=== PATIENT | female | born 1980 | race Caucasian/White ===

== ENCOUNTER 2017-03-24 19:14 | Emergency (ER) | payer OTHER ==
[~2017-03-24] VITALS: Ht 165.1 cm; Wt 69.1 kg
[~2017-03-24 19:14] MED LIST: FERR-89 PO; GABA-529 PO; LISI-618 PO
[2017-03-24] MEDS ORDERED: GABA-531 PO (19:22)
[2017-03-24] MEDS ORDERED: MELO-273 PO (19:22)
[2017-03-24 21:43] VITALS: BP 135/78
[2017-03-24] MEDS ORDERED: METHOCARBAMOL 500 MG TABLET PO ONE (21:45)
[2017-03-24] MEDS ORDERED: HYDROCODONE/ACETAMINOPHEN 5-325 MG TABLET PO ONE (21:45)
== END 2017-03-24 22:09 | disposition home or self-care (01) ==
LOC: EMS 19:16
DX: M75.22 Bicipital tendinitis, left shoulder (principal); I10 Essential (primary) hypertension; J45.909 Unspecified asthma, uncomplicated; Z87.891 Personal history of nicotine dependence; X50.3XXA Overexertion from repetitive movements, initial encounter; Y93.89 Activity, other specified; Y92.89 Other specified places as the place of occurrence of the external cause; Y99.0 Civilian activity done for income or pay
CPT/HCPCS: 81025; 99283

== ENCOUNTER 2018-02-15 20:48 | Emergency (ER) | payer OTHER ==
[~2018-02-15] VITALS: Ht 165.1 cm; Wt 70.5 kg
[~2018-02-15 20:48] MED LIST changes: -FERR-89 PO; -GABA-529 PO; +GABA-531 PO; +MELO-107 PO
[2018-02-15] MEDS ORDERED: HTN MED PO (21:14)
[2018-02-15] MEDS ORDERED: KETOROLAC TROMETHAMINE 30 MG/ML VIAL IM ONE (23:00)
[2018-02-16 00:08] VITALS: BP 114/62
== END 2018-02-16 00:10 | disposition home or self-care (01) ==
LOC: EMS 20:49
DX: M79.7 Fibromyalgia (principal); I10 Essential (primary) hypertension; J45.909 Unspecified asthma, uncomplicated; Z87.891 Personal history of nicotine dependence
CPT/HCPCS: 71046; 93005; 96372; 99284; J1885

== ENCOUNTER 2022-06-26 19:03 | Emergency (ER) | payer OTHER ==
[~2022-06-26] VITALS: Ht 167.6 cm; Wt 68.0 kg
[~2022-06-26 19:03] MED LIST changes: -GABA-531 PO; +HTN MED PO; -LISI-618 PO; -MELO-107 PO
[2022-06-26 19:35] LABS: BASOPHILS % (AUTO) 1.3 % (0.0-2.0); EOSINOPHILS % (AUTO) 1.8 % (1.0-6.0); HEMOGLOBIN 12.8 g/dL (12.0-16.0); LYMPHOCYTES # (AUTO) 1.6 K/uL (1.0-4.8); LYMPHOCYTES % (AUTO) 29.4 % (22.0-44.0); MEAN CORPUSCULAR HEMOGLOBIN 28.6 pg (26.0-34.0); MEAN CORPUSCULAR HGB CONC 32.8 G/dL (31.0-37.0); MEAN CORPUSCULAR VOLUME 87 fL (80-100); MONOCYTES # (AUTO) 0.3 K/uL (0.1-1.0); MONOCYTES % (AUTO) 6.2 % (2.0-9.0); NEUTROPHILS # (AUTO) 3.4 K/uL (1.8-7.7); NEUTROPHILS % (AUTO) 61.3 % (40.0-70.0); PLATELET COUNT (AUTO) 261 K/uL (150-450); RED BLOOD CELL COUNT(AUTO) 4.48 MIL/uL (4.00-5.20); RED CELL DISTRIBUTION WIDTH 19.3 % (11.5-14.5)
[2022-06-26 19:43] LABS: ANION GAP 5 mmol/L (8-16); CALCIUM, TOTAL 9.2 mg/dL (8.8-10.5); CARBON DIOXIDE 29 mmol/L (22-29); CHLORIDE 102 mmol/L (98-107); CREATININE 0.81 mg/dL (0.60-1.30); GLOMERULAR FILTR. RATE CALC > 60 mL/min (>60); GLUCOSE,RANDOM 87 mg/dL (70-110); SODIUM SERUM 136 mmol/L (136-145); UREA NITROGEN, BLOOD 11 mg/dL (7-18)
[2022-06-26 19:54] LABS: ALANINE AMINOTRANSFERASE 18 U/L (12-78); ALBUMIN 3.9 g/dL (3.4-5.0); ALKALINE PHOSPHATASE 49 U/L (46-116); ASPARTATE AMINOTRANSFERASE 14 U/L (15-37); BILIRUBIN,TOTAL 0.4 mg/dL (0.1-1.0); HCG,QUANTITATIVE < 1 mIU/mL (0-6); LIPASE 165 U/L (73-393); TOTAL PROTEIN, SERUM 7.2 g/dL (6.4-8.2)
[2022-06-26 19:56] LABS: APPEARANCE,URINE CLEAR (CLEAR); BILIRUBIN,URINE NEGATIVE (NEGATIVE); GLUCOSE, URINE (UA) NEGATIVE (NEGATIVE); KETONES,URINE NEGATIVE (NEGATIVE); LEUKOCYTE ESTERASE ,URINE NEGATIVE (NEGATIVE); NITRATE,URINE NEGATIVE (NEGATIVE); OCCULT BLOOD,URINE NEGATIVE (NEGATIVE); PH,URINE 6.5 (5.0-8.0); PROTEIN,URINE NEGATIVE (NEGATIVE); SPECIFIC GRAVITIY, URINE 1.009 (1.003-1.030); UROBILINOGEN,URINE <=1.0 mg/dL (<=1.0)
[2022-06-26 22:44] VITALS: BP 122/61
== END 2022-06-26 22:52 | disposition home or self-care (01) ==
LOC: EMS 19:07
DX: R10.33 Periumbilical pain (principal); K59.00 Constipation, unspecified; J45.909 Unspecified asthma, uncomplicated; I10 Essential (primary) hypertension; M79.7 Fibromyalgia; Z98.890 Other specified postprocedural states
CPT/HCPCS: 74022; 74176; 80053; 81003; 83690; 84702; 85025; 99285

== ENCOUNTER 2022-11-21 14:01 | Emergency (ER) | payer OTHER ==
[~2022-11-21] VITALS: Ht 165.1 cm; Wt 75.0 kg
[2022-11-21] MEDS ORDERED: ACETAMINOPHEN 500 MG TABLET PO ONE (15:45)
[2022-11-21] MEDS ORDERED: SODIUM CHLORIDE 0.9% 2,000 ML IV ONE (15:45)
[2022-11-21] MEDS ORDERED: ONDANSETRON HCL 4 MG/2 ML VIAL IVP ONE (15:45)
[2022-11-21] MEDS ORDERED: DIPHENOXYLATE/ATROP 2.5-0.025 MG TABLET PO ONE (15:45)
[2022-11-21] MEDS ORDERED: KETOROLAC TROMETHAMINE 30 MG/ML VIAL IVP ONE (15:45)
[2022-11-21 16:00] LABS: BASOPHILS % (AUTO) 0.3 % (0.0-2.0); EOSINOPHILS % (AUTO) 0.3 % (1.0-6.0); HEMATOCRIT 39.3 % (36-46); HEMOGLOBIN 13.2 g/dL (12.0-16.0); LYMPHOCYTES # (AUTO) 0.6 K/uL (1.0-4.8); LYMPHOCYTES % (AUTO) 10.2 % (22.0-44.0); MEAN CORPUSCULAR HEMOGLOBIN 30.1 pg (26.0-34.0); MEAN CORPUSCULAR HGB CONC 33.5 G/dL (31.0-37.0); MEAN CORPUSCULAR VOLUME 90 fL (80-100); MONOCYTES # (AUTO) 0.4 K/uL (0.1-1.0); MONOCYTES % (AUTO) 6.1 % (2.0-9.0); NEUTROPHILS # (AUTO) 5.2 K/uL (1.8-7.7); NEUTROPHILS % (AUTO) 83.1 % (40.0-70.0); PLATELET COUNT (AUTO) 215 K/uL (150-450); RED BLOOD CELL COUNT(AUTO) 4.38 MIL/uL (4.00-5.20); RED CELL DISTRIBUTION WIDTH 13.8 % (11.5-14.5)
[2022-11-21 16:08] LABS: ANION GAP 7 mmol/L (8-16); CALCIUM, TOTAL 8.7 mg/dL (8.8-10.5); CARBON DIOXIDE 27 mmol/L (22-29); CHLORIDE 103 mmol/L (98-107); CREATININE 0.89 mg/dL (0.60-1.30); GLOMERULAR FILTR. RATE CALC > 60 mL/min (>60); GLUCOSE,RANDOM 77 mg/dL (70-110); POTASSIUM 3.9 mmol/L (3.5-5.1); SODIUM SERUM 137 mmol/L (136-145); UREA NITROGEN, BLOOD 14 mg/dL (7-18)
[2022-11-21 16:17] LABS: ALANINE AMINOTRANSFERASE 30 U/L (12-78); ALBUMIN 3.7 g/dL (3.4-5.0); ALKALINE PHOSPHATASE 58 U/L (46-116); ASPARTATE AMINOTRANSFERASE 33 U/L (15-37); BILIRUBIN,TOTAL 0.3 mg/dL (0.1-1.0); LIPASE 84 U/L (73-393); TOTAL PROTEIN, SERUM 7.5 g/dL (6.4-8.2)
[2022-11-21 17:11] VITALS: BP 102/59
[2022-11-21] MEDS ORDERED: ACET-66 PO (17:12)
[2022-11-21] MEDS ORDERED: DIPH-654 PO (17:12)
[2022-11-21] MEDS ORDERED: ONDA-104 PO (17:12)
== END 2022-11-21 17:46 | disposition home or self-care (01) ==
LOC: EMS 14:02
DX: K52.9 Noninfective gastroenteritis and colitis, unspecified (principal); J45.909 Unspecified asthma, uncomplicated; I10 Essential (primary) hypertension; M79.7 Fibromyalgia; Z87.891 Personal history of nicotine dependence; Z98.890 Other specified postprocedural states
CPT/HCPCS: 99284; 96374; 96361; 96375; 80053; 83690; 84703; 85025; J1885; J2405; J7030

== ENCOUNTER 2023-10-23 07:28 | Emergency (ER) | payer OTHER ==
[~2023-10-23] VITALS: Ht 165.1 cm; Wt 74.5 kg
[~2023-10-23 07:28] MED LIST changes: +ACET-66 PO; +DIPH-1130 PO; -HTN MED PO; +ONDA-104 PO
[2023-10-23 07:29] VITALS: BP 125/74; PULSE 73; RESP 18
[2023-10-23] MEDS ORDERED: GABA-1181 PO (07:36)
[2023-10-23] MEDS ORDERED: LISI-894 PO (07:36)
[2023-10-23] MEDS ORDERED: BACL10TA PO (08:32)
[2023-10-23] MEDS ORDERED: IBUP-1492 PO (09:00)
== END 2023-10-23 09:15 | disposition home or self-care (01) ==
LOC: EMS 07:28
DX: S90.122A Contusion of left lesser toe(s) without damage to nail, initial encounter (principal); J45.909 Unspecified asthma, uncomplicated; I10 Essential (primary) hypertension; M79.7 Fibromyalgia; Z87.891 Personal history of nicotine dependence; Z88.5 Allergy status to narcotic agent; X58.XXXA Exposure to other specified factors, initial encounter; Y93.89 Activity, other specified; Y92.89 Other specified places as the place of occurrence of the external cause; Y99.8 Other external cause status
CPT/HCPCS: 99283

== ENCOUNTER 2024-05-02 12:35 | Emergency (ER) | payer OTHER ==
[~2024-05-02] VITALS: Ht 167.6 cm; Wt 74.0 kg
[~2024-05-02 12:35] MED LIST changes: -ACET-66 PO; +BACL10TA PO; -DIPH-1130 PO; +GABA-1181 PO; +IBUP-1492 PO; +LISI-894 PO; -ONDA-104 PO
[2024-05-02 12:42] VITALS: TEMP 98.2
[2024-05-02 12:59] VITALS: BP 120/76; PULSE 55; RESP 15; O2SAT 98
[2024-05-02] MEDS: LIDOCAINE 5% TRANSDERMAL PATCH TD ONE (13:12)
[2024-05-02] MEDS: KETOROLAC TROMETHAMINE 30 MG/ML VIAL IM ONE (13:13)
== END 2024-05-02 14:01 | disposition home or self-care (01) ==
LOC: EMS 12:35
DX: M25.562 Pain in left knee (principal); J45.909 Unspecified asthma, uncomplicated; I10 Essential (primary) hypertension; Z87.891 Personal history of nicotine dependence; Z98.890 Other specified postprocedural states; Z88.6 Allergy status to analgesic agent
CPT/HCPCS: 99283; 96372; J1885

== ENCOUNTER 2024-10-18 17:42 | Emergency (ER) | payer OTHER ==
[2024-10-18] MEDS ORDERED: ASPI-1590 PO (17:55)
[2024-10-18] MEDS ORDERED: LISI-892 PO (17:56)
[2024-10-18] MEDS ORDERED: ACET-3385 PO (21:13)
[2024-10-18] MEDS ORDERED: IBUP-1506 PO (21:13)
[2024-10-18] MEDS ORDERED: LIDO700A15 TP (21:13)
== END 2024-10-18 21:31 | disposition home or self-care (01) ==
LOC: EMS 17:42
DX: N64.4 Mastodynia (principal); J45.909 Unspecified asthma, uncomplicated; I10 Essential (primary) hypertension; M79.7 Fibromyalgia; Z87.891 Personal history of nicotine dependence; Z79.82 Long term (current) use of aspirin; Z79.899 Other long term (current) drug therapy; Z88.5 Allergy status to narcotic agent
CPT/HCPCS: 99282; Z7502